=== PATIENT | female | born 1960 | race African-American/Black ===

== ENCOUNTER 2017-10-04 10:12 | Emergency (ER) | payer OTHER ==
[~2017-10-04] VITALS: Ht 180.3 cm; Wt 100.0 kg
[~2017-10-04 10:12] MED LIST: Z.0.NO CURRENT MEDS
[2017-10-04 10:14] VITALS: BP 176/91; PULSE 70; RESP 16; TEMP 99; O2SAT 100
[2017-10-04] MEDS ORDERED: SODIUM CHLORIDE 0.9% FLUSH 10 ML FLUSH IVF PRN (11:30)
[2017-10-04] MEDS ORDERED: ASPI-516 CHEW (11:38)
[2017-10-04] MEDS ORDERED: CARV3.125 PO (11:39)
[2017-10-04] MEDS ORDERED: [UNRECOGNIZED DRUG - REMARK] PO (11:39)
[2017-10-04 11:41] LABS: BASOPHIL % 0.9 % (0.0-2.0); EOSINOPHIL # 0.1 TH/MM3 (0-0.4); EOSINOPHIL % 1.7 % (0.0-4.0); HEMATOCRIT 38.3 % (35.0-46.0); HEMOGLOBIN 12.7 GM/DL (11.6-15.3); LYMPH % 42.8 % (9.0-44.0); LYMPHOCYTE # 1.8 TH/MM3 (1.0-4.8); MEAN CELL VOLUME 92.4 FL (80.0-100.0); MEAN CORPUSCULAR HEMOGLOBIN 30.5 PG (27.0-34.0); MEAN PLATELET VOLUME 9.6 FL (7.0-11.0); MONO % 8.5 % (0.0-8.0); MONOCYTE # 0.4 TH/MM3 (0-0.9); NEUT % 46.1 % (16.0-70.0); PLATELET COUNT 188 TH/MM3 (150-450); RED BLOOD COUNT 4.15 MIL/MM3 (4.00-5.30); RED CELL DISTRIBUTION WIDTH 13.9 % (11.6-17.2); WHITE BLOOD COUNT 4.2 TH/MM3 (4.0-11.0)
--- NOTE | 2017-10-04 11:41 | PD ---
HPI Chief Complaint: Chest Pain Time Seen by Provider: 11:10 Travel History International Travel<30 days: No Contact w/Intl Traveler<30days: No Traveled to known affect area: No History of Present Illness HPI The patient was seen and examined in the presence of the nurse. Patient complains of chest pain. For the last few days she's had some central chest discomfort. Like an aching and a pressure. It is not exertional. It is readily reproducible when she presses on it. No injury. She is not short of breath or having any fever. She also mentions some vague atypical symptoms of a squeezing pressure in both her right leg in her right arm. She denies weakness or sensory loss. Symptoms severity is moderate. No alleviating factors. No exacerbating factors duration 3 days PFSH Past Medical History Autoimmune Disease: No Blood Disorders: No Anxiety: No Depression: No Heart Rhythm Problems: No Cancer: No Cardiac Catheterization: No Cardiovascular Problems: Yes High Cholesterol: No Congestive Heart Failure: No Diabetes: No Endocrine: No Genitourinary: Yes (VAGINAL HERPES) Hypertension: Yes Immune Disorder: No Implanted Vascular Access Dvce: No Musculoskeletal: Yes (LEFT SCIATICA) Neurologic: No Psychiatric: No Reproductive: No Respiratory: Yes Myocardial Infarction: No Sickle Cell Disease: No Thyroid Disease: No Menopausal: Yes Miscarriage: 2 Dilation and Curettage (D&C): Yes Past Surgical History Coronary Artery Bypass Graft: No Gynecologic Surgery: Yes (D&C) Social History Alcohol Use: No Tobacco Use: No Substance Use: No Allergies-Medications (Allergen,Severity, Reaction): Coded Allergies: No Known Allergies (Verified Adverse Reaction, Unknown, 10/04/17) Reported Meds & Prescriptions Reported Meds & Active Scripts Active Reported [2 Unknown Bp Meds] 1 Tab PO DAILY Coreg (Carvedilol) 3.125 Mg Tab 3.125 Mg PO BID Aspirin 81 Mg Chew 81 Mg CHEW DAILY Review of Systems General / Constitutional: No: Fever Eyes: No: Visual changes HENT: No: Headaches Cardiovascular: Positive: Chest Pain or Discomfort Respiratory: No: Shortness of Breath Gastrointestinal: No: Abdominal Pain Genitourinary: No: Dysuria Musculoskeletal: Positive: Pain Skin: No Rash Neurologic: No: Weakness Psychiatric: No: Depression Endocrine: No: Polydipsia Hematologic/Lymphatic: No: Easy Bruising Physical Exam Narrative GENERAL: Well-nourished, well-developed patient in no apparent distress. SKIN: Focused skin assessment reveals no rash and nodules. Skin is Warm and dry. HEAD: Atraumatic. Normocephalic. EYES: Pupils equal and round. No scleral icterus. No injection or drainage. ENT: No nasal bleeding or discharge. Mucous membranes pink and moist. NECK: Trachea midline. No JVD. CARDIOVASCULAR: Regular rate and rhythm. No murmur appreciated. RESPIRATORY: No accessory muscle use. Clear to auscultation. Breath sounds equal bilaterally. GASTROINTESTINAL: Abdomen soft, non-tender, nondistended. Hepatic and splenic margins not palpable. MUSCULOSKELETAL: No obvious deformities. No clubbing. No cyanosis. No edema. Has readily reproducible chest wall tenderness to the right and left of the sternum NEUROLOGICAL: Awake and alert. No obvious cranial nerve deficits. Motor grossly within normal limits. Normal speech. PSYCHIATRIC: Appropriate mood and affect; insight and judgment normal. Data Data Last Documented VS Vital Signs Date Time Temp Pulse Resp B/P (MAP) Pulse Ox O2 Delivery O2 Flow Rate FiO2 10/04/17 13:32 62 16 157/72 (100) 100 Room Air 10/04/17 10:14 99.0 Orders Orders Electrocardiogram (10/04/17 ) Basic Metabolic Panel (Bmp) (10/04/17 11:25) Ckmb (Isoenzyme) Profile (10/04/17 11:25) Complete Blood Count With Diff (10/04/17 11:25) Troponin I (10/04/17 11:25) Ecg Monitoring (10/04/17 11:25) Iv Access Insert/Monitor (10/04/17 11:25) Sodium Chloride 0.9% Flush (Ns Flush) (10/04/17 11:30) CKMB (10/04/17 11:25) CKMB% (10/04/17 11:25) Labs Laboratory Tests Test 10/04/17 11:25 White Blood Count 4.2 TH/MM3 Red Blood Count 4.15 MIL/MM3 Hemoglobin 12.7 GM/DL Hematocrit 38.3 % Mean Corpuscular Volume 92.4 FL Mean Corpuscular Hemoglobin 30.5 PG Mean Corpuscular Hemoglobin Concent 33.0 % Red Cell Distribution Width 13.9 % Platelet Count 188 TH/MM3 Mean Platelet Volume 9.6 FL Neutrophils (%) (Auto) 46.1 % Lymphocytes (%) (Auto) 42.8 % Monocytes (%) (Auto) 8.5 % Eosinophils (%) (Auto) 1.7 % Basophils (%) (Auto) 0.9 % Neutrophils # (Auto) 2.0 TH/MM3 Lymphocytes # (Auto) 1.8 TH/MM3 Monocytes # (Auto) 0.4 TH/MM3 Eosinophils # (Auto) 0.1 TH/MM3 Basophils # (Auto) 0.0 TH/MM3 CBC Comment DIFF FINAL Differential Comment Blood Urea Nitrogen 12 MG/DL Creatinine 0.82 MG/DL Random Glucose 85 MG/DL Calcium Level 9.2 MG/DL Sodium Level 139 MEQ/L Potassium Level 3.8 MEQ/L Chloride Level 103 MEQ/L Carbon Dioxide Level 28.5 MEQ/L Anion Gap 8 MEQ/L Estimat Glomerular Filtration Rate 87 ML/MIN Total Creatine Kinase 382 U/L Creatine Kinase MB 2.9 NG/ML Creatine Kinase MB % 0.8 % Troponin I LESS THAN 0.02 NG/ML MDM Medical Decision Making Medical Screen Exam Complete: Yes Emergency Medical Condition: Yes Medical Record Reviewed: Yes Differential Diagnosis Differential diagnosis includes TX, angina, pericarditis, pleurisy, GERD, anxiety. Narrative Course I have reviewed the patient's electronic medical record. IV placed I reviewed the EKG which shows sinus rhythm but no acute ST elevation Extended cardiac monitoring shows sinus rhythm without ectopy CBC is normal Metabolic profile is normal CK is normal Troponin is normal Coagulation studies are normal Patient took an aspirin prior to arrival Patient is having some atypical symptoms in the arm and leg which are intermittent and nonexertional. I don't think they represent ACS variant's or any sort of strokelike phenomenon. She is neurologically intact and describes no weakness or sensory loss more of a discomfort sensation. Workup here is negative. The patient is now asymptomatic. I think she can follow-up with her primary care physician. Her chest pain is clearly musculoskeletal and reproducible and noncardiac in origin Diagnosis Primary Impression: Non-cardiac chest pain Additional Impressions: Right leg pain Right arm pain Additional Instructions: The patient was advised to follow up with their physician and return if they worsen. Med/Other Pt SpecificInfo: Other Disposition: 01 DISCHARGE HOME Condition: Stable Juve García MD Oct 04, 2017 11:41
[2017-10-04 11:44] VITALS: BP 169/79; PULSE 60; RESP 14; O2SAT 100
[2017-10-04 11:55] LABS: BICARBONATE 28.5 MEQ/L (21.0-32.0); BLOOD UREA NITROGEN 12 MG/DL (7-18); CALCIUM 9.2 MG/DL (8.5-10.1); CHLORIDE 103 MEQ/L (98-107); CREATININE 0.82 MG/DL (0.50-1.00); GLOMERULAR FILTRATION RATE 87 ML/MIN (>89); GLUCOSE,RANDOM 85 MG/DL (74-106); SODIUM (NA) 139 MEQ/L (136-145)
[2017-10-04 11:59] LABS: TROPONIN I LESS THAN 0.02 NG/ML (0.02-0.05)
[2017-10-04 13:32] VITALS: BP 157/72; PULSE 62; RESP 16; O2SAT 100
[2017-10-04 13:54] VITALS: BP 150/70; PULSE 60; RESP 16; O2SAT 100
--- NOTE | 2017-10-05 16:49 | EKG ---
Date Performed: 10/04/2017 Time Performed: 10:29:49 PTAGE: 57 years EKG: Sinus rhythm NONSPECIFIC T-WAVE ABNORMALITY BORDERLINE ECG PREVIOUS TRACING : 10/04/2017 10.29 Since previous tracing, no significant change noted DOCTOR: Wilson Costello Interpretating Date/Time 10/05/2017 16:48:21
== END 2017-10-04 14:00 | disposition home or self-care (01) ==
LOC: NEPC 10:12
DX: R07.89 Other chest pain (principal); M79.604 Pain in right leg; M79.601 Pain in right arm; R94.31 Abnormal electrocardiogram [ECG] [EKG]; I10 Essential (primary) hypertension
CPT/HCPCS: 80048; 82550; 82552; 84484; 85025; 93005; 99284